=== PATIENT | female | born 1985 | race Caucasian/White ===

== ENCOUNTER 2017-02-22 12:15 | Inpatient (IN) | payer BC ==
[2017-02-22] VITALS (9 sets, daily range): BP systolic 104–141; BP diastolic 56–86
[~2017-02-22] VITALS: Ht 160 cm; Wt 80.0 kg
[2017-02-22] MEDS ORDERED: PRENATAL TABLE1 EAC3 PO (13:17)
[2017-02-22 15:04] LABS: EOSINOPHIL (%) 0.6 % (0-5); EOSINOPHIL COUNT 0.1 K/uL (0-0.3); IMMATURE GRANULOCYTE COUNT 0.1 K/uL; INSTRUMENT ABS NEUTROPHIL CT 8.4 K/uL; LYMPHOCYTE COUNT 1.6 K/uL (1.0-2.8); MCH 30.7 PG (29.0-34.0); MCHC 34.3 G/DL (30.0-36.0); MCV 89.7 FL (83-99); MEAN PLAT.VOLUME 10.4 uM^3 (9.5-12.4); MONOCYTE (%) 5.8 % (3-12); MONOCYTE COUNT 0.6 K/uL (0-0.8); NEUTROPHIL (%) 77.8 % (45-76); NEUTROPHIL COUNT 8.4 K/uL (1.8-6.4); PLATELET COUNT 223 K/uL (156-360); RBC DIS.WIDTH-CV 13.3 % (11.8-14.6); RBC DIS.WIDTH-SD 43.8 % (39-53); RED BLOOD COUNT 4.46 M/uL (3.80-5.20); WHITE BLOOD COUNT 10.8 K/uL (4.1-10.2)
[2017-02-22] MEDS ORDERED: IBUPROFEN800 MG PO (16:39)
== END 2017-02-23 20:25 | disposition home or self-care (01) | DRG 774 ==
LOC: LDRP-OP 12:15 → 2WEST 12:16 → LDRP-OP 03-30 13:54
PROVIDERS: Obstetrics & Gynecology
DX: O44.53 Low lying placenta with hemorrhage, third trimester (principal); O70.0 First degree perineal laceration during delivery; Z37.0 Single live birth; Z3A.39 39 weeks gestation of pregnancy; Z87.440 Personal history of urinary (tract) infections; Z80.41 Family history of malignant neoplasm of ovary; Z82.49 Family history of ischemic heart disease and other diseases of the circulatory system; Z83.3 Family history of diabetes mellitus
CPT/HCPCS: 85025

== ENCOUNTER 2017-09-30 09:21 | Emergency (ER) | payer BC ==
[~2017-09-30] VITALS: Ht 160 cm; Wt 69.7 kg
[~2017-09-30 09:21] MED LIST: IBUPROFEN800 MG PO; PRENATAL TABLE1 EAC3 PO
[2017-09-30 10:26] LABS: HEMATOCRIT 43.6 % (36.0-46.0); HEMOGLOBIN 14.7 G/DL (11.9-15.5); MCH 29.3 PG (29.0-34.0); MCHC 33.7 G/DL (30.0-36.0); PLATELET COUNT 261 K/uL (156-360); RBC DIS.WIDTH-CV 12.1 % (11.8-14.6); RBC DIS.WIDTH-SD 38.5 % (39-53); RED BLOOD COUNT 5.01 M/uL (3.80-5.20); WHITE BLOOD COUNT 4.7 K/uL (4.1-10.2)
[2017-09-30 10:40] LABS: CHLORIDE 106 mEq/L (99-109); POTASSIUM 3.9 mEq/L (3.7-5.4); SODIUM 138 mEq/L (136-147)
[2017-09-30 10:42] LABS: GLUCOSE 95 mg/dL (70-99)
[2017-09-30 10:46] LABS: CREATININE 0.7 mg/dL (0.6-1.3); GFR ESTIMATE (CALCULATED) > 59 mL/min/; UREA NITROGEN (BUN) 13 mg/dL (9-23)
[2017-09-30 12:44] LABS: ALBUMIN 4.2 g/dL (3.2-4.8)
[2017-09-30 12:47] LABS: TOTAL PROTEIN 7.2 g/dL (6.4-8.3)
[2017-09-30 12:49] LABS: TOTAL BILIRUBIN 1.3 mg/dL (0.0-1.0)
[2017-09-30 12:50] LABS: ALKALINE PHOSPHATASE 69 IU/L (3-129)
[2017-09-30 12:52] LABS: AST (GOT) 16 IU/L (2-34); DIRECT BILIRUBIN 0.4 mg/dL (0.0-0.3)
[2017-09-30 12:53] LABS: ALT (GPT) 12 IU/L (3-49); LIPASE 19 U/L (1.0-51.0)
[2017-09-30 12:59] LABS: QUANTITATIVE HCG < 4.0 MIU/ML
[2017-09-30 14:30] LABS: APPEARANCE CLOUDY ((CLEAR)); BILIRUBIN NEGATIVE; BLOOD SMALL; COLOR YELLOW ((YELLOW)); GLUCOSE (STRIP) NEGATIVE; KETONES 5; LEUKOCYTES SMALL; NITRITE NEGATIVE; PROTEIN (STRIP) NEGATIVE; SPECIFIC GRAVITY 1.026 (1.000-1.030); UROBILINOGEN 0.2 MG/DL (0.2-1.0)
[2017-09-30 14:53] LABS: BACTERIA NONE SEEN /HPF; EPITHELIAL CELLS 2+ /HPF; MUCUS TRACE /LPF; UCUL ADDED? NO; WHITE BLOOD CELLS 0-5 /HPF (0-5)
[2017-09-30] MEDS ORDERED: ZOFRAN4 MG PO (15:00)
[2017-09-30 15:10] VITALS: BP 116/78
== END 2017-09-30 15:11 | disposition home or self-care (01) ==
LOC: EME 09:21
DX: B34.9 Viral infection, unspecified (principal); Z88.0 Allergy status to penicillin
CPT/HCPCS: 80048; 80076; 81003; 83690; 84702; 85027; 99281; 99284; J7030